=== PATIENT | female | born 2000 ===

== ENCOUNTER 2024-03-22 19:05 | Emergency (ER) | payer MEDICAID, SELFPAY ==
[2024-03-22 19:04] VITALS: BP 108/72; PULSE 117; RESP 22; TEMP 37.2; O2SAT 100
--- NOTE | 2024-03-22 19:07 | ECG_ITS ---
Test Date: 2024-03-22 19:11:29 Measurements Intervals [place] Rate: 108 P: 62 MO: 148 QRS: 83 QRSD: 83 T: 47 QT: 316 QTc: 424 Interpretive Statements SINUS TACHYCARDIA No previous ECG available for comparison Electronically Signed On 03-23-2024 15:38:29 CDT by Bg Rees M.D.
[2024-03-22 19:15] VITALS: O2SAT 99
[2024-03-22 19:32] LABS: BEDSIDEPREGUCG Negative
[2024-03-22 19:38] LABS: Basophils Percent Auto 0.4 % (0.2-1.2); Eosinophils Absolute Auto 0.1 K/mm3 (0-0.3); Eosinophils Percent Auto 0.9 % (0-4.4); Hematocrit 36.3 % (37.0-47.0); Immature Granulocyte Absolute 0.04 K/mm3 (0.00-0.031); Immature Granulocyte Percent A 0.5 % (0-0.5); Lymphocytes Absolute Auto 1.73 K/mm3 (0.9-3.2); Lymphocytes Percent Auto 22.5 % (18.3-44.2); Mean Corpuscular HGB Conc 33.1 g/dl (32-36); Mean Corpuscular Hemoglobin 28.3 pg (26-34); Mean Corpuscular Volume 85.6 fl (80-100); Mean Platelet Volume 9.3 fl (7.4-10.4); Monocytes Absolute Auto 0.3 K/mm3 (0.1-0.6); Monocytes Percent Auto 4.3 % (2.6-8.5); Neutrophils Absolute Auto 5.5 K/mm3 (1.3-6.7); Neutrophils Percent Auto 71.4 % (45.5-73.1); Platelet Count Result 303 k/mm3 (150-375); Red Blood Count 4.24 M/mm3 (4.2-5.4); Red Cell Distribution Width 12.8 % (11.5-14.5); White Blood Count 7.7 K/mm3 (4.5-10.0)
[2024-03-22 19:46] VITALS: RESP 18
[2024-03-22 19:50] LABS: Acetaminophen < 10 ug/mL (10-30); Ethanol < 10 mg/dL (<10); Salicylate < 1.0 mg/dL (2-20)
[2024-03-22 19:51] LABS: Amphetamine Screen Urine Negative (Negative); Barbiturate Screen Urine Negative (Negative); Benzodiazepines Screen Urine Negative (Negative); Cannabinoid Screen Urine Positive (Negative); Cocaine Screen Urine Negative (Negative); Methadone Screen Urine Negative (Negative); Opiate Screen Urine Negative (Negative); Phencyclidine Screen Urine Negative (Negative)
[2024-03-22 19:55] LABS: Alanine Aminotransferase 18 U/L (6-35); Albumin Level 4.3 g/dL (3.5-5.1); Alkaline Phosphatase 65 U/L (38-126); Anion Gap 14 mmol/L (4-12); Aspartate Amino Transferase 21 U/L (14-36); Bilirubin,Total 0.5 mg/dL (0.2-1.3); Blood Urea Nitrogen 9 mg/dL (7-17); Calcium 8.8 mg/dL (8.4-10.2); Carbon Dioxide 23 mmol/L (22-30); Chloride 99 mmol/L (98-107); Estimated Glomerular Filt Rate > 60; Glucose 146 mg/dL (65-110); Potassium 3.8 mmol/L (3.4-5.0); Sodium 136 mmol/L (137-145)
--- NOTE | 2024-03-22 19:56 | ED.OVERDOSE ---
HPI - Overdose General Chief Complaint: Overdose Stated Complaint: OVERDOSE Time Seen by Provider: 03/22/24 19:09 History of Present Illness HPI Narrative: 23-year-old female with no past medical history presents to emergency department via EMS from her friend's house after taking a marijuana gummy. Patient states around 4:30 p.m. she ate a gummy containing marijuana that was given her by her friend. She states she began feeling very weird and could not stop moving her extremities. She called her boyfriend who came to the apartment and contacted 911. The patient states she has never used marijuana in the past. She denies other drug or alcohol use. She states she cannot stop moving her extremities. She otherwise has no complaints. She was given a L of fluids and Zofran EN route. she denies SI or HI. Related Data Allergies Allergy/AdvReac Type Severity Reaction Status Date / Time No Known Allergies Allergy Verified 03/22/24 20:29 Review of Systems Review of Systems: All systems reviewed & are unremarkable except as noted in HPI and below Exam Narrative: GENERAL: Well-appearing, well-nourished, and in no acute distress. Writhing in exam bed, flailing all extremities. Appears to be under the influence HEAD: Normocephalic, atraumatic. EYES: PERRLA and EOMI. ENT: Nares clear, no rhinorrhea or epistaxis. Mucous membranes moist. NECK: Supple. CHEST: Clear to auscultation. No respiratory distress. HEART: Regular rate and rhythm. No murmur heard. Normal peripheral pulses. ABDOMEN: Soft, nontender, nondistended, normal active bowel sounds. EXTREMITIES: Normal range of motion. No edema. SKIN: Warm, dry, no rash. NEURO: No focal deficits. Alert and oriented x3. Moving all extremities spontaneously Course Vital Signs Vital signs: Vital Signs Temperature 98.9 F 03/22/24 19:04 Pulse Rate 117 H 03/22/24 19:04 Respiratory Rate 22 H 03/22/24 19:04 Blood Pressure 108/72 03/22/24 19:04 Pulse Oximetry 100 03/22/24 19:04 Oxygen Delivery Room Air 03/22/24 19:04 Temperature 98.9 F 03/22/24 19:04 Pulse Rate 115 H 03/22/24 21:39 Respiratory Rate 18 03/22/24 21:39 Blood Pressure 115/61 03/22/24 21:39 Pulse Oximetry 99 03/22/24 21:39 Oxygen Delivery Room Air 03/22/24 19:15 MDM - Overdose MDM Narrative Medical decision making narrative: 23-year-old female presents to the ED via EMS from her friend's apartment after taking a gummy containing marijuana at 4:30 p.m.. Triage vital significant for tachycardia 117, otherwise unremarkable. Patient appears under the influence on exam, she is flailing all extremities and the exam bed. She is pleasant and cooperative and answering all questions appropriately. She has no other complaints. CBC is unremarkable. Chemistries normal. Glucose 146. UA with 6-10 wbc's and trace leuk esterase, no nitrates. She does not have symptoms of UTI. Urine culture pending. is negative. ETOH less than 10. Salicylate and acetaminophen levels Normal. UDS positive for marijuana. Patient given a mg of Ativan with improvement in her symptoms. Her periods are now at bedside. I have updated them on the workup and plan. She is somnolent but responsive to verbal stimuli. She has been served for 3-1/2 hours and does seem to be more arousable. She is ambulatory in the ED. Parents have agreed to take the patient home and monitor her. Patient feels safe to be discharged home as well. Advised her to not take any street drugs and to follow-up with her PCP. Strict ED return precautions provided. They are agreeable with the plan verbalized understanding. Discharged in stable condition. Lab Data 03/22/24 19:26 03/22/24 19:26 Labs: Lab Results 03/22/24 03/22/24 03/22/24 Range/Units 19:26 19:29 19:30 WBC 7.7 (4.5-10.0) K/mm3 RBC 4.24 (4.2-5.4) M/mm3 Hgb 12.0 (12.0-15.0) g/dL Hct 36.3 L (37
[2024-03-22 20:07] LABS: Add Urine Microscopic? YES; Appearance Urine Clear (Clear); Bacteria Urine None Seen /hpf; Bilirubin Urine Negative (Negative); Blood Urine Negative (Negative); Color Urine Yellow (Yellow); Glucose Urine UA Negative (Negative); Ketones Urine Negative (Negative); Leukocyte Esterase Ur Trace LEU/UL (Negative); Need Manual Microscopic Reviewed; Nitrate Urine Negative (Negative); Protein Urine Negative (Negative); RBC Urine 0-2 /hpf (0-2); Specific Grav Ur 1.015 (1.001-1.035); Squamous Epithelial Cell Urine Few /hpf (Few); Urobilinogen Urine 0.2 mg/dL (<2.0); pH Urine 5.5 (5.0-9.0)
[2024-03-22 20:13] LABS: SARS-CoV-2 RNA PCR Negative (Negative)
[2024-03-22 20:19] LABS: Thyroid Stimulating Hormone 0.439 uIU/mL (0.465-4.680)
[2024-03-22] MEDS: LORazepam INJ (*CRX) 2 MG/ML VIAL 1 MG IV PUSH (20:30)
[2024-03-22 21:39] VITALS: BP 115/61; PULSE 115; RESP 18; O2SAT 99
[2024-03-22 22:40] VITALS: BP 102/64; PULSE 97; RESP 18; O2SAT 98
[2024-03-22 23:09] VITALS: BP 119/74; PULSE 98; RESP 18; O2SAT 100
== END 2024-03-22 23:11 | disposition home or self-care (01) ==
PROVIDERS: Family Medicine; Emergency Provider Physician Assistant
DX: F12.90 Cannabis use, unspecified, uncomplicated (principal); R00.0 Tachycardia, unspecified
CPT/HCPCS: 36415; 80053; 80307; 81001; 81025; 84443; 85025; 87086; 87088; 87635; 93005; 96374; 99284; J2060